=== PATIENT | male | born 1985 | race Caucasian/White ===

== ENCOUNTER 2017-01-21 21:27 | Emergency (ER) | payer BC, OTHER ==
[~2017-01-21] VITALS: Ht 177.8 cm; Wt 86.9 kg
[2017-01-21 22:02] VITALS: Ht 177.8 cm; Wt 86.9 kg
--- NOTE | 2017-01-21 23:22 | ERPDOC ---
Departure Disposition Decision Date: Jan 22, 2017 Disposition Decision Time: 00:48 Disposition: 01 DISCHARGED HOME, SELF-CARE Impression Impression Impression: Primary Impression: Nausea and vomiting Vomiting type: unspecified Vomiting Intractability: non-intractable Qualified Codes: R11.2 - Nausea with vomiting, unspecified Severity: Moderate Condition: Stable Seen By: Physician only Patient Instructions: Acute Nausea and Vomiting (ED) Problems/Meds/Labs Reviewed?: Yes Medications reviewed and manag: Yes Additional Instructions: Follow-up with your primary medical physician for reevaluation Follow up care ordered?: Yes Mental Status: Alert, Oriented Scripts Ondansetron (Zofran Odt) 4 Mg Tab.rapdis 4 MG PO Q6HR Y for NAUSEA &/OR VOMITING, #10 TAB Oral disintegrating tablet Prov: IVONNE SONG MD 01/22/17 HPI - Abdominal Pain General Chief Complaint: Abdominal Pain Stated Complaint: NAUSEA, ABD BURNING Time Seen by Provider: 23:21 Source: patient, family History/Exam Limitations: no limitations HPI - Abdominal Pain Initial Comments Patient is a 31-year-old male presents emergency room for evaluation of nausea/ vomiting/diarrhea. The symptoms of waxed and waned for about 10 days now, was doing relatively well on Sunday and Sunday, however symptoms return today. Patient is complaining of some generalized abdominal burning. Patient decided tonight to present to the ER for evaluation Occurred At: home Onset: Rapid Duration: other (10 days) Allergies: Coded Allergies: No Known Allergies (Unverified , 01/22/17) Past History Past Medical History Pt denies signifigant PMH Surgical History Denies Surgeries Social History Smoking Status: Never smoker Substance Use Type: does not use Alcohol Intake: none Review of Systems Constitutional Constitutional: appetite decrease, weakness, DENIES: chills, dizziness Eyes Vision: DENIES: double vision, loss of visual [place] ENMT Sinuses: DENIES: congestion, rhinorrhea Mouth/Throat: DENIES: sore throat Cardiovascular Cardiac: DENIES: chest pain, dyspnea on exertion Pulmonary Respiratory: DENIES: cough, dyspnea, sputum, tachypnea GI Upper Abdomen: nausea, vomiting, DENIES: pain Lower Abdomen: diarrhea, DENIES: constipation, pain Musculoskeletal General: DENIES: cramps, pain, weakness Integumentary Skin: DENIES: color change, itching, rash Endocrine Endocrine: DENIES: heat/cold intolerance Hematologic/Lymphatic Hematologic/Lymphatic: DENIES: anemia Physical Exam General General Nourishment: well nourished, well developed General Body Habitus: well groomed Vitals and Pain First Documented Vital Signs Date Time Temp Pulse Resp B/P Pulse Ox O2 Delivery O2 Flow Rate FiO2 01/21/17 22:02 98.4 77 16 127/84 99 Room Air Weight: Kilograms: 86.900 Height (feet): 5 Height (inches): 10.00 Triage Pain Scale: RN VS reviewed by Provider: Yes Eyes (brief) Eyes Brief: found: EOMI ENMT (brief) ENMT Brief: FOUND: mucosa moist, normal dentition, NOT FOUND: nasal erythema, tonsillar deviation Neck (brief) Neck: NOT FOUND: adenopathy, spasm, tenderness Respiratory (brief) Respiratory: FOUND: clear all [place], equal bilaterally, NOT FOUND: rales, wheezes Cardiovascular (brief) Cardiac: FOUND: regular rate, regular rhythm Capillary Refill: <2 sec Abdomen (brief) Abdominal Brief: FOUND: bowel normo active x4, soft, NOT FOUND: distended, tender Lymphatic (brief) Lymphatic Brief: NOT FOUND: adenopathy Musculoskeletal (brief) Musculoskeletal Brief: NOT FOUND: spasm, tenderness Integumentary (brief) Integumentary Brief: FOUND: dry, pink, warm, NOT FOUND: rash Neurologic (brief) Neurological Brief: FOUND: CN w/o gross def to obs, motor-no gross deficits, sensory-no gross deficits Psychiatric (brief) Psychiatric Brief: FOUND: alert, oriented Differential Diagnoses Considering: Appendicitis, Biliary Colic, Bowel Obstruction, Cholecystitis, Constipation, Gastroenteritis, IBS, Ileus, Neoplasm, Pancreatitis, Pyelonephritis, Renal Colic, Ulcer, Ulcerative Colitis, UTI, Volvulus, Other ( anxiety) Progress Results/Orders Orders Procedure Category Date Status Time Iv Lock (Ed Only) EDM 01/21/17 Transmitted 23:27 Nothing By Mouth (Ed EDM 01/21/17 Transmitted Only) 23:27 Cbc W/Auto LAB 01/21/17 Complete Diff-Reflex Manual 23:27 Cmp - Comprehensive LAB 01/21/17 Complete Metabolic 23:27 Lipase LAB 01/21/17 Complete 23:27 Ua, Dip Wreflex LAB 01/21/17 Complete Microsc & Rn Documentation 23:27 Normal Saline (Normal PHA 01/21/17 Complete Saline Iv) 23:30 Prochlorperazine PHA 01/21/17 Complete (Compazine) 23:30 Ondansetron Inj PHA 01/22/17 Complete (Zofran) 00:15 Lorazepam (Ativan) PHA 01/22/17 Complete 00:15 Lorazepam (Ativan) PHA 01/22/17 Complete 00:45 Diphenhydramine PHA 01/22/17 Complete (Benadryl) 00:45 Bgm (Ed) EDM 01/22/17 Transmitted 00:32 Ondansetron Odt PHA 01/22/17 Complete (Prepack) (Zofran Odt 01:00 Lab Results Laboratory Tests Test 01/21/17 23:45 01/22/17 00:35 White Blood Count 7.2T/MM3 Red Blood Count 4.84M/MM3 Hemoglobin 14.9GM/DL Hematocrit 42.6% Mean Corpuscular Volume 88.0UM3 Mean Corpuscular Hemoglobin 30.8UUG Mean Corpuscular Hemoglobin Concent 35.0GM/DL RDW Standard Deviation 36.5FL Platelet Count 192T/MM3 Mean Platelet Volume 9.8UM3 Immature Granulocyte % (Auto) 0.1% Neutrophils (%) (Auto) 65.6% Lymphocytes (%) (Auto) 26.5% Monocytes (%) (Auto) 6.9% Eosinophils (%) (Auto) 0.6% Basophils (%) (Auto) 0.3% Absolute Immature Granulocyte (auto 0.01T/MM3 Absolute Neutrophils (auto) 4.8T/MM3 Absolute Lymphocytes (auto) 1.9T/MM3 Absolute Monocytes (auto) 0.5T/MM3 Absolute Eosinophils (auto) 0.0T/MM3 Absolute Basophils (auto) 0.0T/MM3 Urine Collection Type Voided-not cc-midstr Urine Color Yellow Urine Turbidity Clear Urine pH 6.0 Urine Specific [place] 1.025 Urine Protein Negative Urine Glucose (UA) Negative Urine Ketones 2+ Urine Blood Negative Urine Nitrite Negative Urine Bilirubin Negative Urine Urobilinogen 0.2EU/DL Urine Leukocyte Esterase Negative Urinalysis Comment Microscopic not ind. Turbidity < 20 Sodium Level 145MEQ/L Potassium Level 4.3MEQ/L Chloride Level 104MEQ/L Carbon Dioxide Level 27MEQ/L Anion Gap 14MEQ/L Blood Urea Nitrogen 12.0MG/DL Creatinine 0.9MG/DL Glomerular Filtration Rate Calc 98 BUN/Creatinine Ratio 13RATIO Glucose Level 85MG/DL Calculated Osmolality 278MOSM/KG Calcium Level 10.2MG/DL Total Bilirubin 0.70MG/DL Icterus Index < 2 Aspartate Amino Transf (AST/SGOT) 34U/L Alanine Aminotransferase (ALT/SGPT) 41U/L Alkaline Phosphatase 76U/L Total Protein 8.0G/DL Albumin 4.8G/DL Globulin 3.2G/DL Albumin/Globulin Ratio 1.5RATIO Lipase 126U/L Chemistry Specimen Hemolysis < 15 Glucometer 81mg/dL Medications Current ED Medications Sodium Chloride (Normal Saline IV) 1,000 ml @ 999 mls/hr Q1H1M ONCE IV Last administered on 01/21/17 23:48; Start 01/21/17 at 23:30; Stop 01/22/17 at 00:30 ; Status DC Prochlorperazine Edisylate (Compazine) 10 mg O ONCE IV Last administered on 23:48; Start 01/21/17 at 23:30; Stop 01/21/17 at 23:31; Status DC Ondansetron HCl (Zofran) 4 mg O ONCE IV Last administered on 01/22/17 00:05; Start 01/22/17 at 00:15; Stop 01/22/17 at 00:16; Status DC Lorazepam (Ativan) 0.5 mg O ONCE IV Last administered on 01/22/17 00:17; Start 01/22/17 at 00:15; Stop 01/22/17 at 00:16; Status DC Lorazepam (Ativan) 0.5 mg O ONCE IV Last administered on 01/22/17 00:43; Start 01/22/17 at 00:45; Stop 01/22/17 at 00:46; Status DC Diphenhydramine HCl (Benadryl) 50 mg O ONCE IV Last administered on 01/22/17 00:43; Start 01/22/17 at 00:45; Stop 01/22/17 at 00:46; Status DC Ondansetron HCl (ZOFRAN ODT (PrePack)) 1 pack O ONCE SENT HOME Last administered on 3/27/17at 01:21; Start 01/22/17 at 01:00; Stop 01/22/17 at 01:01 ; Status DC Progress Progress While waiting for laboratories to return patient had sudden diaphoresis and shaking, he states he's been getting these episodes ever since his grandfather . Patient's symptoms improved with Ativan and Benadryl, we'll discharge patient home laboratories are otherwise noncontributory. We'll diagnose patient with gastroenteritis, Zofran ODT is as needed for nausea patient is to follow with primary medical physician for further evaluation of his anxiety episodes IVONNE SONG MD Jan 21, 2017 23:22
[2017-01-21] MEDS ORDERED: PROCHLORPERAZINE 10mg/2ml INJECTION IV ONE (23:30)
[2017-01-21] MEDS ORDERED: NORMAL SALINE 1,000 ML IV ONE (23:30)
--- NOTE | 2017-01-21 23:32 | NUR ---
BATHROOM PT AMBULATORY TO BATHROOM TO VOID URINE SPEC OBTAINED
--- NOTE | 2017-01-21 23:44 | NUR ---
IVL IVL STARTED IN THE RIGHT AC WITH #20GA, FIRST ATTEMPT BLOOD OBTAINED FOR LAB PT DENA WELL
--- NOTE | 2017-01-21 23:48 | NUR ---
COMPAZINE IV COMPAZINE GIVEN FOR NAUSEA
--- NOTE | 2017-01-21 23:48 | NUR ---
IV FLUID #1 1000CC NS STARTED AT 999CC/HR IV SITE WITHOUT REDNESS OR SWELLING
[2017-01-21 23:51] LABS: BLOOD, URINE NEGATIVE (NEGATIVE); COLOR,URINE YELLOW (YELLOW); LEUKOCYTE ESTERASE ,URINE NEGATIVE (NEGATIVE); NITRITE,URINE NEGATIVE (NEGATIVE); UROBILINOGEN,URINE 0.2 EU/DL (NORMAL)
[2017-01-21 23:52] LABS: BASOPHILS % (AUTO) 0.3 % (0-2); EOSINOPHILS % (AUTO) 0.6 % (0-4); HCT - HEMATOCRIT 42.6 % (41-53); HGB - HEMOGLOBIN 14.9 GM/DL (13.5-17.5); IMMATURE GRANULOCYTE # (AUTO) 0.01 T/MM3 (0.00-0.03); IMMATURE GRANULOCYTE % (AUTO) 0.1 % (0.0-0.5); LYMPHOCYTES # (AUTO) 1.9 T/MM3 (1-4.8); LYMPHOCYTES % (AUTO) 26.5 % (23-45); MEAN CORPUSCULAR HGB 30.8 UUG (26-34); MEAN PLATELET VOLUME 9.8 UM3 (9.4-12.4); MONOCYTES # (AUTO) 0.5 T/MM3 (0-0.8); MONOCYTES % (AUTO) 6.9 % (0-9.0); NEUTROPHILS #(AUTO)-ABSOLUTE 4.8 T/MM3 (1.8-7.7); NEUTROPHILS % (AUTO) 65.6 % (33-66); RED BLOOD COUNT 4.84 M/MM3 (4.50-5.90); WBC - WHITE BLOOD COUNT 7.2 T/MM3 (4.5-11.0)
[2017-01-21] MEDS ORDERED: NO ROUTINE MEDS (23:58)
[2017-01-22] LABS: ALBUMIN 4.8 G/DL (3.5-5.0); ALBUMIN/GLOBULIN RATIO 1.5 RATIO (1.1-2.2); ALKALINE PHOSPHATASE 76 U/L (38-126); ALT (SGPT) 41 U/L (21-72); ANION GAP 14 MEQ/L (5-15); AST (SGOT) 34 U/L (17-59); BUN/CREATININE RATIO 13 RATIO (6-26); CALCIUM 10.2 MG/DL (8.4-10.2); CHLORIDE 104 MEQ/L (98-107); CO2 - CARBON DIOXIDE 27 MEQ/L (22-30); CREATININE 0.9 MG/DL (0.8-1.5); GLOMERULAR FILTRATION RATE 98; GLUCOSE 85 MG/DL (75-110); LIPASE 126 U/L (23-300); POTASSIUM 4.3 MEQ/L (3.6-5); SODIUM 145 MEQ/L (134-144)
--- NOTE | 2017-01-22 00:04 | NUR ---
STATUS PT STARTS TO HYPERVENTILATE AND SAYING HE DOESN'T FEEL WELL BECOMING DIAPHORETIC, PALE AND ANXIOUS PT REPORTS HE HAS BEEN HAVING EPISODES LIKE THIS. HE SUDDENLY GETS ANXIETY AND SAYS HE THINKS HE HAS BEEN HAVING SOME PANIC ATTACKS. STATES SHE GAVE HIM HALF OF ONE OF HER XANAX TABS THE OTHER DAY AND HE THOUGHT IT HELPED.
--- NOTE | 2017-01-22 00:05 | NUR ---
ZOFRAN IV ZOFRAN GIVEN FOR CONTINUED NAUSEA
--- NOTE | 2017-01-22 00:06 | NUR ---
CARE COOL CLOTH TO FORHEAD AND HELPING PT TO SLOW DOWN HIS RESP REMAINS AT BEDSIDE TALKING TO HIM CALMLY PT SAYS HE IS STILL NAUSEATED, BUT UNSURE IF IT IS THE ANXIETY DOING IT SOME SHAKING NOTED PT BECOMING RESTLESS DR SONG NOTIFIED
[2017-01-22] MEDS ORDERED: LORAZEPAM 2 MG/ML INJECTION IV ONE ×2 (00:15→00:45)
[2017-01-22] MEDS ORDERED: ONDANSETRON 4mg/2ml INJECTION IV ONE (00:15)
--- NOTE | 2017-01-22 00:17 | NUR ---
ATIVAN IV ATIVAN GIVEN FOR ANXIETY/PANIC
--- NOTE | 2017-01-22 00:18 | NUR ---
ANXIETY TALKING WITH PT ABOUT RECENT STRESSORS OR LOSSES THAT MAY HAVE TRIGGERED THIS SUDDEN ONSET OF ANXIETY HE HAS BEEN HAVING THE LAST COUPLE MONTHS. STATES HE LOST HIS GRANDFATHER RECENTLY AND THEY WERE VERY CLOSE. ALSO STATES HE WAS HERE IN [place] ON THE [facility]ICAL AND SURGICAL UNITS SEVERAL TIMES BEFORE HE PASSED.
--- NOTE | 2017-01-22 00:36 | NUR ---
STATUS PT CONTINUES TO HAVE BODY SHAKING AND DIAPHORESIS REMAINS PALE AND ANXIOUS SITTING ON SIDE OF THE CART TRYING TO KEEP FROM SHAKING SO MUCH DR SONG NOTIFIED
--- NOTE | 2017-01-22 00:43 | NUR ---
ATIVAN IV ATIVAN ALSO GIVEN BY NITO AGOSTO
--- NOTE | 2017-01-22 00:43 | NUR ---
BENADRYL IV BENADRYL GIVEN BY NITO AGOSTO PT REMAINS PALE AND DIAPHORETIC CONTINUES TO HYPERVENTILATE AND SHAKING ALL OVER
[2017-01-22] MEDS ORDERED: DiphenhydrAMINE 50 MG/ML INJECTION IV ONE (00:45)
[2017-01-22] MEDS ORDERED: ONDA4TAB7 PO (00:49)
--- NOTE | 2017-01-22 00:53 | NUR ---
IV FLUID IV NS INFUSED IV SITE WITHOUT REDNESS OR SWELLING
[2017-01-22] MEDS ORDERED: ONDANSETRON ODT 4mg #3 (PrePack) SENT HOME ONE (01:00)
--- NOTE | 2017-01-22 01:08 | NUR ---
STATUS PT IS DROWSY STATES HE FEELS BETTER REMAINS AT BEDSIDE
--- NOTE | 2017-01-22 01:17 | NUR ---
STATUS PT RESTING QUIETLY WITH EYES CLOSED RESP EVEN AND UNLABORED DIAPHORESIS AND SHAKING HAVE STOPPED PT AROUSES EASILY TO VERBAL STIMULI AT BEDSIDE
--- NOTE | 2017-01-22 01:18 | NUR ---
IVL IVL DC'D WITH CATH INTACT DRSG APPLIED TO IV SITE PT DENA WELL
--- NOTE | 2017-01-22 01:21 | NUR ---
INSTRUCTIONS DISMISSAL AND MEDICATION INSTRUCTIONS GIVEN TO PT AND DISPENSE ZOFRAN PREPACK WITH INSTRUCTIONS WILL FOLLOW-UP WITH PCP ABOUT ANXIETY ISSUES PT AND VERBALIZE UNDERSTANDING OF ALL
[2017-01-22 01:24] VITALS: BP 126/87; PULSE 81; RESP 16; TEMP 98.4; O2SAT 97
--- NOTE | 2017-01-22 01:24 | NUR ---
DISMISS PT DISMISSED AMBULATORY WITH
== END 2017-01-22 01:24 | disposition home or self-care (01) ==
LOC: ED 21:27
DX: R11.2 Nausea with vomiting, unspecified (principal); R19.7 Diarrhea, unspecified; R10.84 Generalized abdominal pain
CPT/HCPCS: 36415; 80053; 81003; 82948; 83690; 85025; 96361; 96374; 96375; 99284; J0780; J1200; J2060; J2405; J7030